=== PATIENT | female | born 1985 | race Caucasian/White ===

== ENCOUNTER 2023-04-15 08:00 | Outpatient (RCR) | payer MEDICAID, SELFPAY ==
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
[2023-04-15 10:56] VITALS: BP 119/69; PULSE 82
--- NOTE | 2023-04-15 11:10 | BH.SGPN.GN ---
Behaviors/Verbalizations/Mental Status: []Pt alert and oriented, casually dressed and groomed. Eye contact good. Motor activity appropriate. Speech within normal limits. Affect congruent, mood dysthymic. Thoughts linear, logical, no signs of hallucinations or delusions. Client Response/Progress/Benefit: []Pt was an active participant during activity and discussion AEB providing some input, connecting with peers, as well as taking notes throughout. Pt did well to engage as group worked on identifying characteristics and benefits of adopting a growth mindset. Worked with fellow participants in reframing the example fixed thoughts into growth mindset thoughts. Reframed personal fixed thought of ?I can?t succeed? with growth mindset thought of ?I can learn and begin utilizing skills to better help me succeed.? Benefitted from discussing benefits of growth mindset and brainstorming strategies for prompting growth-mindset. Pt appeared to benefit from working in small groups to challenge own thoughts and help peers. Pt will continue IOP tx to improve mood stability, reinforce healthy coping skills, and further prevent decompensation. Narrative Note: []
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
--- NOTE | 2023-04-15 12:26 | BH.DR.ITP ---
Initial Treatment Plan Patient Information Visit Information: ADMISSION DATE: EXPECTED LOS: 4-6 weeks Problems/Symptoms Problem #1:: Depression Symptom:: Sadness, guilt, low motivation, anhedonia, biological disruption of appetite, decreased sleep, low energy, decreased concentration, passive thoughts of Problem #2:: Anxiety Symptom:: Worry, rumination, racing thoughts, avoidance, flashbacks, nightmares
--- NOTE | 2023-04-15 14:53 | BH.MDN ---
Multi-Disciplinary Note - Note 30-min Individual Time Started:: 09:30 Date: 04/15/23 Purpose of session/treatment goals addressed:: Purpose of session was to build rapport, identify current symptoms and stressors, and identify treatment goals. Eye Contact:: Fair Motor Activity:: Restless Appearance:: Casual Speech:: Appropriate Mood:: Anxious, Depressed Affect:: Constricted Thoughts:: Linear, Logical, No evidence of hallucinations/delusions noted Staff Interventions:: psychoeducation on: - borderline personality disorder, CBT techniques, rapport building, strengths perspective, treatment planning, goal setting Client Response:: Client reported she is seeking treatment because she started to have increased risky behaviors with money and interpersonal relationships. Client reported she has Time Stopped:: 10:00
--- NOTE | 2023-04-17 09:00 | BH.SGPN.GN ---
Behaviors/Verbalizations/Mental Status: [] Eye contact is good. Motor activity is appropriate. Appearance is disheveled. Speech is Appropriate. Mood is anxious. Affect is congruent. Thoughts are linear and logical. No evidence of psychosis. Reviewed daily check in sheet and no reports of suicidal ideations or intent. Client Response/Progress/Benefit: [] Pt was an active participant in group discussions. Attentive. Emotion for today is ?tired?. Mental health win is ? I?m here?. Shared struggles with motivation this AM. Able to reframe and challenge thoughts and utilize opposite-action to get to IOP this AM. She is ?happy? that she is here. Shared stressors this evening, however overall very short and superficial check-in. Benefited from group support. Will continue in IOP to prevent decompensation, stabilize mood, and to increase health coping skills. Narrative Note: []
--- NOTE | 2023-04-17 10:06 | BH.SGPN.GN ---
Behaviors/Verbalizations/Mental Status: []Client alert and oriented, casually dressed and groomed. Eye contact good. Motor activity appropriate. Speech within normal limits. Affect congruent, mood anxious, depressed. Thoughts linear, logical, no signs of hallucinations or delusions. Client Response/Progress/Benefit: []Client receptive to session AEB providing input throughout, listening attentively to others, and taking notes. Attentive throughout psychoeducation on the cognitive triangle and maintenance cycles. Engaged in group discussion reviewing the impact of daily activities and behaviors in either reinforcing unhealthy maintenance cycles and depression or assisting in reducing symptoms (?down? vs ?up? activities). Client identified common ?down? activities they engage in as: shutting the door while in her bedroom, napping, substance use, ignoring phone calls, and social media. Common ?Up? activities client identified included: cooking, leaving the bedroom door open, listening to high energy music, therapy, and talking to friends. Appeared to benefit from increased awareness of current behaviors and impact these have on mental health. Recommended to continue IOP tx to stabilize moods, reduce isolation, and prevent decompensation. Narrative Note: []
== END 2023-04-22 23:59 ==
LOC: BHIOP 08:00
PROVIDERS: Referring Provider Psychiatry & Neurology Psychiatry; Visit Provider Psychiatry & Neurology Psychiatry
DX: F41.9 Anxiety disorder, unspecified (principal); F32.A Depression, unspecified
CPT/HCPCS: 90792; H2012; H2020; S9480; T1002; 90832